=== PATIENT | female | born 1960 | race Caucasian/White ===

== ENCOUNTER 2018-11-18 11:44 | Emergency (ER) | payer OTHER ==
[~2018-11-18] VITALS: Ht 177.8 cm; Wt 81.6 kg
[2018-11-18] MEDS ORDERED: AVAPRO75 MG (12:05)
[2018-11-18] MEDS ORDERED: SYNTHROID112 MCG (12:05)
== END 2018-11-18 19:05 | disposition home or self-care (01) ==
LOC: ER 11:44
DX: R42 Dizziness and giddiness (principal)